=== PATIENT | male | born 1965 | race Caucasian/White ===

== ENCOUNTER 2020-01-27 03:39 | Emergency (ER) | payer SELFPAY ==
[~2020-01-27] VITALS: Ht 175.3 cm; Wt 72.0 kg
[2020-01-27] MEDS ORDERED: LORAZEPAM 1MG TABLET PO ONE (04:30)
[2020-01-27 06:14] VITALS: BP 131/74
== END 2020-01-27 06:19 | disposition home or self-care (01) ==
LOC: ER 03:39
DX: T26.42XA Burn of left eye and adnexa, part unspecified, initial encounter (principal); T26.41XA Burn of right eye and adnexa, part unspecified, initial encounter; T65.893A Toxic effect of other specified substances, assault, initial encounter; Y93.89 Activity, other specified; Y92.89 Other specified places as the place of occurrence of the external cause
CPT/HCPCS: 99283